=== PATIENT | male | born 2000 | race Caucasian/White ===

== ENCOUNTER 2020-04-30 10:11 | Emergency (ER) | payer SELFPAY ==
[2020-04-30] VITALS (23 sets, daily range): BP systolic 136–182; BP diastolic 81–103; PULSE 58–97; RESP 13–21; TEMP 36.7; O2SAT 97–100
--- NOTE | ~2020-04-30 | XR_ITS ---
XR chest 2V DATE: 04/30/2020 11:03 INDICATION: Shortness of breath TECHNIQUE: PA and lateral views COMPARISON: None FINDINGS: Normal heart size. No hilar or mediastinal enlargement. No pulmonary infiltrate or consolid ation, pleural effusion or pulmonary vascular congestion or pneumothorax. IMPRESSION: No active cardiopulmonary disease Reviewed, dictated and finalized at location A.
--- NOTE | 2020-04-30 10:17 | ECG_ITS ---
Measurements Intervals [place] Rate: 97 P: 71 UT: 150 QRS: 48 QRSD: 90 T: 47 QT: 313 QTc: 398 Interpretive Statements SINUS RHYTHM NORMAL ECG Electronically Signed On 04-30-2020 10:51:49 CDT by Santos Kelly D.O.
[2020-04-30 11:18] LABS: Basophils Percent Auto 0.4 % (0.2-1.2); Eosinophils Absolute Auto 0.1 K/mm3 (0-0.3); Eosinophils Percent Auto 2.2 % (0-4.4); Hemoglobin 16.1 g/dL (14.0-18.0); Immature Granulocyte Absolute 0.01 K/mm3 (0.00-0.031); Immature Granulocyte Percent A 0.2 % (0-0.5); Lymphocytes Absolute Auto 2.25 K/mm3 (0.9-3.2); Lymphocytes Percent Auto 41.7 % (18.3-44.2); Mean Corpuscular Hemoglobin 29.5 pg (26-34); Mean Corpuscular Volume 84.2 fl (80-100); Mean Platelet Volume 10.9 fl (7.4-10.4); Monocytes Absolute Auto 0.3 K/mm3 (0.1-0.6); Monocytes Percent Auto 5.9 % (2.6-8.5); Neutrophils Absolute Auto 2.7 K/mm3 (1.3-6.7); Neutrophils Percent Auto 49.6 % (45.5-73.1); Platelet Count Result 234 k/mm3 (150-375); Red Blood Count 5.46 M/mm3 (4.6-6.20); Red Cell Distribution Width 11.6 % (11.5-14.5); White Blood Count 5.4 K/mm3 (4.5-10.0)
[2020-04-30 11:28] LABS: Partial Thromboplastin Time 27.7 SECONDS (22.3-36.8); Prothrombin Time 12.6 Seconds (11.1-14.7)
--- NOTE | 2020-04-30 11:31 | ED.CHESTPAIN ---
HPI - Chest Pain General Chief Complaint: Chest Pain <Tuan Bang PA-C - Last Filed: 04/30/20 14:43> Stated Complaint: CP <Tuan Bang PA-C - Last Filed: 04/30/20 14:43> Time Seen by Provider: 04/30/20 10:48 <Tuan Bang PA-C - Last Filed: 04/30/20 14:43> Source: patient <JANAY Kimble Last Filed: 04/30/20 14:43> Mode of arrival: ambulatory <JANAY Kimble Last Filed: 04/30/20 14:43> Limitations: no limitations <JANAY Kimble Last Filed: 04/30/20 14:43> History of Present Illness HPI narrative: Patient presents with chief complaint of chest soreness that presents intermittently after he uses of e-cigarette or a puff bar. Patient states he has been trying to discontinue cigarette usage so he switch to puff bars which makes his chest sore and switched to e cigarettes because his grandma told him they were cheaper. He states he smoked a puffbar the other day and noticed his symptoms return. Patient states he does not have these symptoms when he smokes regular cigarettes. Patient denies sharp or left sided chest pain, SOB, nausea, vomiting diaphoresis, family history of AR, hypertension, or hYperlipidemia. He states he did not go to work today so he will need a work not. <Tuan Bang PA-C - Last Filed: 04/30/20 14:43> Related Data Allergies/Adverse Reactions: Allergies Allergy/AdvReac Type Severity Reaction Status Date / Time No Known Allergies Allergy Unverified 06/14/17 16:59 <JANAY Kimble Last Filed: 04/30/20 14:43> Review of Systems Review of Systems: Narrative: CONSTITUTIONAL: Denies fever, chills, or sweats. EYES: Denies visual changes, redness, or discharge. ENT: Denies rhinorrhea, congestion, sore throat, or otalgia. CARDIOVASCULAR: Reports chest discomfort. Denies palpitations, or edema. RESPIRATORY: Denies cough or dyspnea. GASTROINTESTINAL: Denies abdominal pain, nausea, vomiting, or diarrhea. GENITOURINARY: Denies dysuria or hematuria. SKIN: Denies rash or itching. MUSCULOSKELETAL: Denies back pain, myalgia, or joint pain NEUROLOGIC: Denies headache, numbness, dizziness, or weakness. PSYCHIATRIC: Denies anxiety or depression. <Tuan Bang PA-C - Last Filed: 04/30/20 14:43> [facility] Social History Social History: Social History Gender identity (if verbalized by the patient): Male <Tuan Bang PA-C - Last Filed: 04/30/20 14:43> Exam Narrative: Exam Narrative: GENERAL: Well-appearing, well-nourished. No apparent discomfort. Patient talking and laughing during exam. HEAD: Normocephalic, atraumatic. EYES: PERRLA and EOMI. ENT: Nares clear, no rhinorrhea or epistaxis. Mucous membranes moist. Oropharynx without tonsillar hypertrophy exudate or other lesions. Bilateral TMs pearly forde nonbulging NECK: Supple. No adenopathy or masses. No vertebral tenderness or loss of ROM. CHEST: Clear to auscultation. No respiratory distress. No wheezes rales or rhonchi. Symptoms not reproducible with palpation of chest wall. HEART: Regular rate and rhythm. Normal peripheral pulses. ABDOMEN: Soft, nontender, nondistended, normal active bowel sounds. No bruises noted. EXTREMITIES: No acute changes in ROM. No edema. SKIN: Warm, dry, no rash. NEURO: No focal deficits. Alert and oriented x3. PSYCH: Normal mood and affect. <Tuan Bang PA-C - Last Filed: 04/30/20 14:43> Course Vital Signs Vital signs: Vital Signs Temperature 98.0 F 04/30/20 10:26 Pulse Rate 97 04/30/20 10:26 Respiratory Rate 18 04/30/20 10:26 Blood Pressure 152/89 H 04/30/20 10:26 Pulse Oximetry 100 04/30/20 10:26 Temperature 98.0 F 04/30/20 10:26 Pulse Rate 63 04/30/20 14:56 Respiratory Rate 17 04/30/20 14:56 Blood Pressure 158/99 H 04/30/20 14:58 Pulse Oximetry 100 04/30/20 14:56 <Tuan Bang PA-C - Last Filed: 04/30/20 14:43> Vital Signs Temperature 98.0 F 04/30/20 10:26
[2020-04-30 11:32] LABS: Anion Gap 8 mmol/L (8-16); Blood Urea Nitrogen 15 mg/dL (9-20); Calcium 9.6 mg/dL (8.4-10.2); Carbon Dioxide 26 mmol/L (22-30); Chloride 104 mmol/L (98-107); Estimated CRCL calculation 112 ml/min; Estimated Glomerular Filt Rate > 60; Glucose 109 mg/dL (75-110); Potassium 3.9 mmol/L (3.4-5.0); Sodium 138 mmol/L (137-145)
[2020-04-30 11:43] LABS: Troponin I 0.018 ng/mL (0.000-0.034)
[2020-04-30 14:38] LABS: Troponin I 0.018 ng/mL (0.000-0.034)
== END 2020-04-30 14:55 | disposition home or self-care (01) ==
PROVIDERS: Emergency Provider General Practice
DX: R09.1 Pleurisy (principal)
CPT/HCPCS: 36415; 71046; 80048; 84484; 85025; 85610; 85730; 93005; 99284

== ENCOUNTER 2021-10-09 18:22 | Emergency (ER) | payer OTHER, SELFPAY ==
--- NOTE | ~2021-10-09 | XR_ITS ---
XR chest 2V DATE: 10/09/2021 18:50 INDICATION: Dry cough for 3 days. Patient vapes TECHNIQUE: PA and lateral views COMPARISON: 04/30/2022 view chest FINDINGS: Normal heart size. No hilar or mediastinal enlargement. The lungs are normally inflated and clear. No pleural effusion or pulmonary vascular congestion or pneumothorax. Included skeletal struc tures appear normal. IMPRESSION: Negative Reviewed, dictated and finalized at location A. IMPRESSION: Negative
[2021-10-09 18:30] VITALS: BP 183/105; PULSE 94; RESP 16; TEMP 37.3; O2SAT 100
--- NOTE | 2021-10-09 18:43 | ED.URI ---
HPI - URI/Sore Throat General Chief Complaint: Upper Respiratory Infection Stated Complaint: sob Time Seen by Provider: 10/09/21 18:37 Source: patient and RN notes reviewed Mode of arrival: ambulatory Limitations: no limitations History of Present Illness HPI Narrative: Patient presents today complaining of cough that was productive initially, but is currently nonproductive, intermittent shortness of breath which is exacerbated by his anxiety. He also reports that he did have some left-sided lateral chest pain that was worse with deep breath, but this has completely resolved prior to arrival. Denies fever or any additional symptoms. He has tried an albuterol inhaler which has been providing some temporary relief. He has tried no other [id number] medications prior to arrival. Patient does vape. MD elicited complaint: cough Related Data Home Medications Medication Instructions Recorded Confirmed sertraline 100 mg PO DAILY 10/09/21 10/09/21 Allergies Allergy/AdvReac Type Severity Reaction Status Date / Time Sulfa (Sulfonamide Allergy Other Verified 10/09/21 18:33 Antibiotics) Review of Systems Review of Systems: CONSTITUTIONAL: Denies body aches, fever, chills, or sweats. EYES: Denies visual changes, redness, or discharge. ENT: Denies rhinorrhea, congestion, sore throat, or otalgia. CARDIOVASCULAR: Denies chest pain, palpitations, or edema. RESPIRATORY: + Cough, shortness of breath GASTROINTESTINAL: Denies abdominal pain, nausea, vomiting, or diarrhea. GENITOURINARY: Denies dysuria or hematuria. SKIN: Denies rash, itching, or wounds. MUSCULOSKELETAL: Denies back pain, joint pain, or myalgia. NEUROLOGIC: Denies headache, numbness, tingling, or weakness. PSYCH: Denies depression or anxiety. [facility] Social History Social History (Updated 10/09/21 @ 18:46 by Veronica Hayes, [facility], ) Tobacco type: e-cigarettes/vaping Gender identity (if verbalized by the patient): Male Comments At time of signature, I have reviewed and agree with nursing past medical, surgical, social and family history unless otherwise noted. Please see nursing chart for further information. There is no relevant family history pertinent to the presenting complaint Exam Narrative: GENERAL: Well-appearing, well-nourished, and in no acute distress. HEAD: Normocephalic, atraumatic. EYES: EOMI. No redness or drainage. Conjunctivae normal. ENT: Mucous membranes pink and moist. Nares clear. No rhinorrhea. TMs normal bilaterally. Throat normal. Uvula midline. NECK: Normal AROM. Supple. No lymphadenopathy. CHEST: No respiratory distress. Clear to auscultation. Slight inspiratory wheezes in the bilateral upper lobes, otherwise clear. Patient is speaking in complete sentences in no apparent distress. HEART: Regular rate and rhythm. No murmur appreciated. Normal peripheral pulses. EXTREMITIES: Normal range of motion. No edema. SKIN: Warm, dry, no rash. Capillary refill normal. Normal skin turgor. NEURO: No focal deficits. Alert and oriented x3. Gait steady. PSYCH: Normal affect. No signs of depression or anxiety. Course Course Level of Care: Express Care Visit Vital Signs Vital signs: Vital Signs Temperature 99.2 F 10/09/21 18:30 Pulse Rate 94 10/09/21 18:30 Respiratory Rate 16 10/09/21 18:30 Blood Pressure 183/105 H 10/09/21 18:30 Pulse Oximetry 100 10/09/21 18:30 Temperature 99.2 F 10/09/21 18:30 Pulse Rate 94 10/09/21 18:30 Respiratory Rate 16 10/09/21 18:30 Blood Pressure 183/105 H 10/09/21 18:30 Pulse Oximetry 100 10/09/21 18:30 Reviewed. Pt has been instructed to follow up with his PCP regarding his elevated blood pressure today. States his doctor wants to start him on medication, but he declines as he believes his high blood pressure is due to his anxiety. MDM - URI/Sore Throat Differential Diagnosis Differential diagnosis: Likely upper respiratory infection, viral infection, bron
== END 2021-10-09 19:13 | disposition home or self-care (01) ==
PROVIDERS: Emergency Provider Nurse Practitioner; PCP Physician Assistant
DX: J40 Bronchitis, not specified as acute or chronic (principal); F17.290 Nicotine dependence, other tobacco product, uncomplicated
CPT/HCPCS: 71046; 99213; G0463

== ENCOUNTER 2022-01-18 09:29 | Emergency (ER) | payer OTHER, SELFPAY ==
[2022-01-18 09:38] VITALS: BP 146/93; PULSE 105; RESP 20; TEMP 36.2; O2SAT 100
--- NOTE | 2022-01-18 09:46 | ED.URI ---
HPI - URI/Sore Throat General Chief Complaint: Upper Respiratory Infection Stated Complaint: Congestion Time Seen by Provider: 01/18/22 09:40 Source: patient and RN notes reviewed Mode of arrival: ambulatory Limitations: no limitations History of Present Illness HPI Narrative: 21-year-old male presented for complaint of headache, sinus congestion and stuffy nose. He states it started 2 days ago and symptoms were worse at that time. Denies associated body aches, fatigue, fevers, chills, sore throat, cough. He is not vaccinated for COVID or flu. He denies sick contacts. He endorses getting acute bronchitis every month. He has been taking Vicks for symptoms and denies any pain at this time. MD elicited complaint: cough Related Data Home Medications Medication Instructions Recorded Confirmed sertraline 100 mg tablet 100 mg PO DAILY 10/09/21 10/09/21 Allergies Allergy/AdvReac Type Severity Reaction Status Date / Time Sulfa (Sulfonamide Allergy Other Verified 10/09/21 18:33 Antibiotics) Review of Systems Review of Systems: ROS negative except as in HPI [facility] Social History Social History Tobacco type: e-cigarettes/vaping Gender identity (if verbalized by the patient): Male Exam Narrative: GENERAL: well-appearing EYES: conjunctivae clear ENT: Mucous membranes moist. Nasal congestion. NECK: Supple. No lymphadenopathy CHEST: Clear to auscultation, breath sounds equal. HEART: Regular rate and rhythm. No murmur heard. SKIN: chronic Rash to left lateral ankle and between 2nd and 3rd fingers on left hand NEURO: Alert and oriented x3. Course Course Emergency Course: Patient is aware of diagnosis, understands and agrees to treatment plan. Anticipatory guidance given. Patient agrees to follow-up as directed and is aware of reasons to seek care at the emergency department. Portions of this record may have been created with voice recognition software Level of Care: Express Care Visit Vital Signs Vital signs: reviewed MDM - URI/Sore Throat MDM Narrative Medical decision making narrative: covid positive; advised quarantine guidelines, supportive measures and signs/symptoms to go to the ER. He states he has a at home, he is advised to avoid contact with the baby and contact the gas burner operator for any additional recommendations. Verbalized understanding. Pt is appropriate for outpt treatment and f/u. Differential Diagnosis Differential diagnosis: Likely upper respiratory infection, sinusitis and viral infection Discharge Plan Discharge Clinical Impression: COVID-19, Dermatitis Patient Disposition: Home, Self-Care Condition: Stable Instructions: Antibiotic Form, COVID-19 (Coronavirus Disease 2019) (ED) Additional Instructions: Your rapid COVID test was positive today. The following recommendations have been made by the CDC and local Health Departments, regarding COVID-19: -Quarnatine for 5 days -Avoid crowds -Those individuals with mild cases of COVID-19 can generally be discontinued from isolation 5 days AFTER the onset of symptoms AND the resolution of fever for 24hrs (without the use of fever-reducing medications)* -Wear a mask when you return to public for at least 5 days Rest, stay hydrated. Tylenol 1000mg eveyr 8 hours as needed for pain/fever Flonase/nasal spray, Zyrtec, cough syrup cold/flu medications for symptoms as needed Follow up with your primary care provider as needed in 1week Go to the ER for worsening symptoms or concerns Prescriptions: No Action sertraline 100 mg tablet 100 mg PO DAILY Follow-up/Referrals: [place],[facility] [place] [Primary Care Provider] - Stand Alone Forms: Work/School Release IP Time of Disposition: 10:08
== END 2022-01-18 10:25 | disposition home or self-care (01) ==
PROVIDERS: Emergency Provider Nurse Practitioner Family; PCP Physician Assistant
DX: U07.1 COVID-19 (principal); L30.9 Dermatitis, unspecified; F17.290 Nicotine dependence, other tobacco product, uncomplicated
CPT/HCPCS: 87426; 87804; 99213; C9803; G0463

== ENCOUNTER 2022-06-10 12:37 | Emergency (ER) | payer OTHER, SELFPAY ==
--- NOTE | 2022-06-10 12:52 | ED.URI ---
HPI - URI/Sore Throat General Chief Complaint: Upper Respiratory Infection Stated Complaint: Sore Throat,Cough Time Seen by Provider: 06/10/22 12:53 Source: patient Mode of arrival: ambulatory Limitations: no limitations History of Present Illness HPI Narrative: Mr. Addison is a 22-year-old male patient presenting to the clinic today with complaints of sore throat , body aches, cough, and nasal congestion x2 days. He reports and he also has overall fatigue. Reports that his daughter's been sick at home and thinks he may have caught this from her. MD elicited complaint: cough, sore throat and nasal congestion Related Data Home Medications Medication Instructions Recorded Confirmed sertraline 100 mg tablet 100 mg PO DAILY 10/09/21 01/18/22 Allergies Allergy/AdvReac Type Severity Reaction Status Date / Time Sulfa (Sulfonamide Allergy Other Verified 10/09/21 18:33 Antibiotics) Review of Systems Review of Systems: Pertinent positives per HPI. Patient denies any fever, chills, rash, headache, visual changes, dizziness, shortness of breath, chest pain, palpitations, nausea, vomiting, diarrhea, constipation, abdominal pain, or any urinary issues. [facility] Social History Social History Tobacco type: e-cigarettes/vaping Gender identity (if verbalized by the patient): Male Comments At the time of my signature, I reviewed and agree with the nursing past medical, surgical, social, and family history. There is no relevant family history pertinent to the patient complaint. Exam Narrative: General: Well-developed, well nourished, in no apparent distress Head: Normocephalic, atraumatic Eyes: Pupils equally round and reactive to light bilaterally, EOM intact, sclera and conjunctive clear, no discharge, lids normal Ears: TMs intact and clear, ear canals ceruminous, no drainage, grossly hearing normal. Nose: Nares patent, clear nasal discharge, mild inflammation, no sinus tenderness. Mouth: Oral pharynx without lesions or masses, good dentition, MMM. Oropharynx red Neck: Supple, trachea midline, no enlargement of anterior or posterior cervical nodes, no thyroid masses or goiter palpable. Cardio: Regular rate and rhythm, s1 and s2 normal, no murmur appreciated. Resp: Clear to auscultation bilaterally, no rhonchi, rales, wheezing or rubs Course Course Emergency Course: Portions of this record may have been created with voice recognition software. Level of Care: Express Care Visit Vital Signs Vital signs: Vital Signs Temperature 37.2 C 06/10/22 13:00 Pulse Rate 122 H 06/10/22 13:00 Respiratory Rate 20 06/10/22 13:00 Blood Pressure 156/98 H 06/10/22 13:00 Pulse Oximetry 100 06/10/22 13:00 Oxygen Delivery Room Air 06/10/22 13:00 Temperature 37.2 C 06/10/22 13:00 Pulse Rate 122 H 06/10/22 13:00 Respiratory Rate 20 06/10/22 13:00 Blood Pressure 156/98 H 06/10/22 13:00 Pulse Oximetry 100 06/10/22 13:00 Oxygen Delivery Room Air 06/10/22 13:00 Vital signs reviewed MDM - URI/Sore Throat MDM Narrative Medical decision making narrative: At the time of visit patient is resting comfortably on the exam table. influenza, strep, COVID swabs were obtained in the clinic today. Patient tested positive for influenza A. Strep and COVID testing were negative. Will send in prescription for Tamiflu and supportive measures were discussed with the patient he voiced understanding of discharge instructions and agrees to treatment plan. Differential Diagnosis Differential diagnosis: Likely upper respiratory infection, otitis media, sinusitis, viral infection, bronchitis, influenza, pharyngitis and other ( COVID) Lab Data Labs: Influenza A Screen Positive Reference Range: Negative Influenza B Screen Negative
[2022-06-10 13:00] VITALS: BP 156/98; PULSE 122; RESP 20; TEMP 37.2; O2SAT 100
== END 2022-06-10 13:20 | disposition home or self-care (01) ==
PROVIDERS: Emergency Provider Nurse Practitioner Family; PCP Physician Assistant
DX: J10.1 Influenza due to other identified influenza virus with other respiratory manifestations (principal); Z20.822 Contact with and (suspected) exposure to COVID-19; F17.290 Nicotine dependence, other tobacco product, uncomplicated; F41.9 Anxiety disorder, unspecified
CPT/HCPCS: 87081; 87426; 87804; 87880; 99213; C9803; G0463

== ENCOUNTER 2022-08-25 17:27 | Emergency (ER) | payer OTHER, SELFPAY ==
--- NOTE | ~2022-08-25 | XR_ITS ---
EXAMINATION: XR chest 2V DATE: 08/25/2022 17:55 INDICATION: Shortness of breath. TECHNIQUE: Frontal and lateral views of the chest were obtained on 3 radiographs. COMPARISON: Chest 2 views 10/09/2021 FINDINGS: The chest demonstrates clear lungs without pneumonia, pleural effusion, or pneumothorax. Th e heart size is normal. IMPRESSION: 1. No acute cardiopulmonary disease. Reviewed, dictated and finalized at location A. [facility]
--- NOTE | 2022-08-25 17:35 | ED.URI ---
HPI - URI/Sore Throat General Chief Complaint: Anxiety Stated Complaint: SOB Time Seen by Provider: 08/25/22 17:35 Source: patient Mode of arrival: ambulatory Limitations: no limitations History of Present Illness HPI Narrative: 22 yo M with hx of anxiety presents requesting a chest x-ray. States that he has been SOB for months which he thought was related to his anxiety but now he is concerned about his lungs and wants them checked. No changes to SOB. No cough. Denies CP. States a constantly feeling in throat like something is stuck. Has tried several anxiety meds with his PCP but none work. Currently not taking anything to treat it. States CBD helps but his PCP said he will not see him anymore if he uses it. Pt reports high HR and BP related to anxiety. Saw Dr. Ortiz at [facility] and was told was fine and all his symptoms are related to anxiety. States im sure this is my anxiety but just want my lungs looked at . All systems reviewed and negative except as noted above. Related Data Home Medications Medication Instructions Recorded Confirmed sertraline 100 mg tablet 100 mg PO DAILY 10/09/21 01/18/22 Allergies Allergy/AdvReac Type Severity Reaction Status Date / Time Sulfa (Sulfonamide Allergy Other Verified 10/09/21 18:33 Antibiotics) Review of Systems Review of Systems: CONSTITUTIONAL: Denies fever, chills, or sweats. EYES: Denies visual changes, redness, or discharge. ENT: Denies rhinorrhea, congestion, sore throat, or otalgia. CARDIOVASCULAR: Denies chest pain, palpitations, or edema. RESPIRATORY: Denies cough or dyspnea. GASTROINTESTINAL: Denies abdominal pain, nausea, vomiting, or diarrhea. GENITOURINARY: Denies dysuria or hematuria. SKIN: Denies rash or itching. MUSCULOSKELETAL: Denies back pain, joint pain, or myalgia. NEUROLOGIC: Denies headache, numbness, or weakness. PSYCHIATRIC: reports anxiety. Denies depression. All other systems reviewed are negative, except as documented in HPI. [facility] Social History Social History Tobacco type: e-cigarettes/vaping Gender identity (if verbalized by the patient): Male Comments At time of signature, agree with nursing past medical, surgical, social and family history. There is no relevant family history pertinent to the presenting complaint. Exam Narrative: GENERAL: This is a well-nourished, well-developed patient, in no apparent distress. HEAD: normocephalic, atraumatic. EYES: PERRL. Sclera clear/white. Vision is grossly intact. EARS: External ears normal NOSE: External nose normal NECK: Neck supple, non-tender without lymphadenopathy, masses or thyromegaly. CARDIOVASCULAR: Regular rate and rhythm without murmurs, gallops, or rubs. RESPIRATORY: Clear to auscultation. Breath sounds equal bilaterally. No wheezes, rales, or rhonchi. SKIN: warm, Dry, intact with no suspicious lesions or rash, good texture and turgor. NEURO: awake, alert, and oriented to person, place and time. There were no obvious focal neurologic abnormalities. EXTREMITIES: No joint tenderness, effusion, or edema noted. Course Course Level of Care: Express Care Visit Vital Signs Vital signs: Vital Signs Temperature 37.1 C 08/25/22 17:39 Pulse Rate 133 H 08/25/22 17:39 Respiratory Rate 18 08/25/22 17:39 Blood Pressure 181/111 H 08/25/22 17:39 Pulse Oximetry 100 08/25/22 17:39 Oxygen Delivery Room Air 08/25/22 17:39 Temperature 37.1 C 08/25/22 17:39 Pulse Rate 133 H 08/25/22 17:39 Respiratory Rate 18 08/25/22 17:39 Blood Pressure 181/111 H 08/25/22 17:39 Pulse Oximetry 100 08/25/22 17:39 Oxygen Delivery Room Air 08/25/22 17:39 HR 108 auscultated MDM - URI/Sore Throat MDM Narrative Medical decision making narrative: Patient is aware of diagnosis, understands and agrees to treatment plan. Anticipatory guidance given. Patient agrees to follow-up as directed and is madhuri
[2022-08-25 17:39] VITALS: BP 181/111; PULSE 133; RESP 18; TEMP 37.1; O2SAT 100
== END 2022-08-25 18:26 | disposition home or self-care (01) ==
PROVIDERS: Emergency Provider Nurse Practitioner Family; PCP Physician Assistant
DX: F41.9 Anxiety disorder, unspecified (principal); F17.290 Nicotine dependence, other tobacco product, uncomplicated; I10 Essential (primary) hypertension
CPT/HCPCS: 71046; 99213; G0463

== ENCOUNTER 2022-10-07 18:35 | Emergency (ER) | payer OTHER, SELFPAY ==
[2022-10-07 18:44] VITALS: BP 159/121; PULSE 145; RESP 16; TEMP 38.3; O2SAT 99
--- NOTE | 2022-10-07 19:14 | ED.URI ---
HPI - URI/Sore Throat General Chief Complaint: Upper Respiratory Infection Stated Complaint: Sinus Source: patient and RN notes reviewed Mode of arrival: ambulatory Limitations: no limitations History of Present Illness HPI Narrative: 22 y/o male presented for c/o headache, body aches, sinus pressure/congestion, cough, fever/chills. Onset 2 days. Denies known sick contacts. Denies shortness of breath, wheezing, nausea, vomiting, diarrhea or lethargy. He is not taking anything for symptoms. Endorses hx anxiety which raises HR and BP at doctor's offices/hospitals. Reports bp med compliance. MD elicited complaint: cough Related Data Home Medications Medication Instructions Recorded Confirmed metoprolol succinate 50 mg 50 mg PO DAILY 10/07/22 10/07/22 tablet,extended release 24 hr Allergies Allergy/AdvReac Type Severity Reaction Status Date / Time Sulfa (Sulfonamide Allergy Other Verified 10/07/22 18:47 Antibiotics) Review of Systems Review of Systems: CONSTITUTIONAL: Endorses malaise, chills, sweats, fever EYES: Denies visual changes, redness, or discharge ENT: Reports rhinorrhea, congestion, sinus pain, otalgia, sore throat CARDIOVASCULAR: Denies chest pain, palpitations, edema RESPIRATORY: Reports cough, post nasal drainage. Denies dyspnea GASTROINTESTINAL: Denies abdominal pain, nausea, vomiting, diarrhea SKIN: Denies rash or itching MUSCULOSKELETAL: Endorses myalgia PMFSH Past Medical History Medical History Hypertension Social History Social History Tobacco type: e-cigarettes/vaping Gender identity (if verbalized by the patient): Male Exam Narrative: GENERAL: midly Ill-appearing, nontoxic EYES: PERRLA, conjunctivae clear ENT: Mucous membranes moist. TMs pearly forde with dull light reflex bilaterally; no tragal tenderness. Oropharynx erythematous without lesions or exudate, no drooling, no hoarseness, no trismus, uvula midline. No tripod positioning, muffled voice, soft palate or pharyngeal wall bulging NECK: Supple. No lymphadenopathy CHEST: Clear to auscultation, breath sounds equal. No wheezing, rhonchi, rales, or stridor. No respiratory distress, speaks in full sentences. HEART: Tachy and Regular No murmur heard. SKIN: Warm, dry, no rash. NEURO: Alert and oriented x3. Course Course Emergency Course: Patient is aware of diagnosis, understands and agrees to treatment plan. Anticipatory guidance given. Patient agrees to follow-up as directed and is aware of reasons to seek care at the emergency department. Portions of this record may have been created with voice recognition software Level of Care: Express Care Visit Vital Signs Vital signs: Vital Signs Temperature 101.0 F H 10/07/22 18:44 Pulse Rate 145 H 10/07/22 18:44 Respiratory Rate 16 10/07/22 18:44 Blood Pressure 159/121 H 10/07/22 18:44 Pulse Oximetry 99 10/07/22 18:44 Oxygen Delivery Room Air 10/07/22 18:44 Temperature 101.0 F H 10/07/22 18:44 Pulse Rate 145 H 10/07/22 18:44 Respiratory Rate 16 10/07/22 18:44 Blood Pressure 159/121 H 10/07/22 18:44 Pulse Oximetry 99 10/07/22 18:44 Oxygen Delivery Room Air 10/07/22 18:44 reviewed MDM - URI/Sore Throat MDM Narrative Medical decision making narrative: Results of test reviewed with patient. Discussed heart rate and blood pressure. Advised supportive measures and signs/symptoms to go to the ER. Pt is appropriate for outpt treatment and f/u. Differential Diagnosis Differential diagnosis: Likely upper respiratory infection, otitis media, sinusitis, viral infection, bronchitis, influenza and pharyngitis Lab Data Labs: Influenza A Screen Negative Reference Range: Negative Influenza B Screen Negative
== END 2022-10-07 19:31 | disposition home or self-care (01) ==
PROVIDERS: Emergency Provider Nurse Practitioner Family; PCP Physician Assistant
DX: B34.9 Viral infection, unspecified (principal); Z20.822 Contact with and (suspected) exposure to COVID-19; F17.290 Nicotine dependence, other tobacco product, uncomplicated; I10 Essential (primary) hypertension
CPT/HCPCS: 87081; 87426; 87804; 87880; 99213; C9803; G0463

== ENCOUNTER 2023-01-09 09:00 | Emergency (ER) | payer OTHER, SELFPAY ==
--- NOTE | 2023-01-09 09:06 | ED.GENADULT ---
HPI - General Adult General Chief complaint: Eye Problems Stated complaint: pink eye Time Seen by Provider: 01/09/23 09:07 Source: patient, RN notes reviewed and old records reviewed Mode of arrival: ambulatory Limitations: no limitations History of Present Illness HPI narrative: 22-year-old male presents to the [facility] with concerns for pinkeye to the right eye. Denies any change in vision. States that he woke up with his eyes or red, right 1 did clear up, increase of drainage from the eye. Patient states that his daughter had pinkeye 5 days ago. Has a history of hypertension, reports he has not taken medications in 2 days, but took a dose today Related Data Home Medications Medication Instructions Recorded Confirmed metoprolol succinate 50 mg 50 mg PO DAILY 10/07/22 01/09/23 tablet,extended release 24 hr aripiprazole 5 mg tablet 5 mg PO DAILY 01/09/23 01/09/23 propranolol 60 mg capsule,24 60 mg PO DAILY 01/09/23 01/09/23 hr,extended release Allergies Allergy/AdvReac Type Severity Reaction Status Date / Time Sulfa (Sulfonamide Allergy Other Verified 01/09/23 09:06 Antibiotics) Review of Systems Review of Systems: All systems reviewed & are unremarkable except as noted in HPI and below Constitutional: Constitutional: Reports no additional constitutional complaints Eyes: Eyes: Reports as per HPI, Reports irritation and Reports itchy eyes ENT: Reports system reviewed and no additional complaints, except as documented Cardiovascular: Cardiovascular: Reports no additional cardiovascular complaints, Denies chest pain and Denies dyspnea Respiratory: Respiratory: Reports no additional respiratory complaints, Denies chest congestion, Denies cough and Denies dyspnea Gastrointestinal: Gastrointestinal: Reports no additional gastrointestinal complaints, Denies abdominal pain, Denies nausea and Denies vomiting Musculoskeletal: Musculoskeletal: Reports no additional musculoskeletal complaints Integumentary/Breasts: Skin/Breast: Reports system reviewed and no additional complaints, except as docu Neurologic: Reports system reviewed and no additional complaints, except as documented Psychiatric: Psychiatric: Reports no additional psychiatric complaints Allergic/Immunologic: Allergic/Immunologic: Reports no additional allergic/immunologic complaints PMFSH Past Medical History Medical History Hypertension Social History Social History Tobacco type: e-cigarettes/vaping Gender identity (if verbalized by the patient): Male Comments At the time of my signature, I reviewed and agree with the nursing past medical, surgical, social, and family history. There is no relevant family history pertinent to the patient complaint. Exam Const: General: cooperative, healthy appearing, comfortable, no acute distress, well developed, alert and well nourished Nutritional Appearance: well nourished and obese Orientation/consciousness: patient oriented x3 Limitations: no limitations HENMT: Head: normal to inspection Ears: hearing grossly normal bilaterally and external ears normal Face/Nose/Sinus: Normal external nose present, Normal nares present, Normal nasal mucous membranes and turbinates present and normal facial exam Face and sinus: normal facial exam Mouth: Yes Normal oral and palatal mucosa present, Yes lip normal and Yes moist mucous membranes Throat: posterior oropharynx normal and uvula midline Eyes: General: appearance normal, both eyes and all related structures Visual Chapman: normal visual chapman by confrontation Alignment and Position: alignment normal Periorbital: periorbital findings normal Eyelids: eyelids normal Conjunctivae: conjunctival abnormality right conjunctival injection localized (Lower lid, right) and discharge (Clear) Sclera: sclerae normal Cornea: corneas normal Pupils: Equ
[2023-01-09 09:07] VITALS: BP 157/103; PULSE 107; RESP 16; TEMP 36.6; O2SAT 99
== END 2023-01-09 09:22 | disposition home or self-care (01) ==
PROVIDERS: Emergency Provider Nurse Practitioner; PCP Physician Assistant
DX: H10.9 Unspecified conjunctivitis (principal); I10 Essential (primary) hypertension; F17.290 Nicotine dependence, other tobacco product, uncomplicated
CPT/HCPCS: 99213; G0463

== ENCOUNTER 2024-05-20 12:22 | Emergency (ER) | payer OTHER, SELFPAY ==
[2024-05-20 12:35] VITALS: BP 162/107; PULSE 111; RESP 20; TEMP 39.4; O2SAT 100
[2024-05-20 12:59] VITALS: TEMP 39.4
[2024-05-20] MEDS: IBUPROFEN 600 MG TABLET PO (12:59)
--- NOTE | 2024-05-20 13:16 | ED_ITS ---
HPI - URI/Sore Throat General Chief Complaint: Upper Respiratory Infection Stated Complaint: Fever/Sore Throat Time Seen by Provider: 05/20/24 13:16 Source: patient, RN notes reviewed and old records reviewed Mode of arrival: ambulatory Limitations: no limitations History of Present Illness HPI Narrative: Patient presents febrile. He reports that he has 2 day history of sore throat, fever, body aches, headache. He also presents hypertensive. Reports that he has not been taking any of his antihypertensive medication for several days. Denies any chest pain or shortness of breath. Denies any dizziness. Reports that he has not been taking any medication for his acute symptoms. Says his employer tested him for COVID prior to sending him home today. Related Data Home Medications Medication Instructions Recorded Confirmed metoprolol succinate 50 mg 50 mg PO DAILY 10/07/22 05/20/24 tablet,extended release 24 hr aripiprazole 5 mg tablet 5 mg PO DAILY 01/09/23 05/20/24 propranolol 60 mg capsule,24 60 mg PO DAILY 01/09/23 05/20/24 hr,extended release Allergies Allergy/AdvReac Type Severity Reaction Status Date / Time Sulfa (Sulfonamide Allergy Other Verified 05/20/24 12:25 Antibiotics) Review of Systems Review of Systems: All systems reviewed & are unremarkable except as noted in HPI and below Constitutional: Constitutional: Reports no additional constitutional complaints, Reports fever(s) and Reports headache(s) ENT: Reports system reviewed and no additional complaints, except as documented and Reports sore throat Cardiovascular: Cardiovascular: Reports no additional cardiovascular complaints Respiratory: Respiratory: Reports no additional respiratory complaints Gastrointestinal: Gastrointestinal: Reports no additional gastrointestinal complaints [facility] Past Medical History Medical History Hypertension Social History Social History Tobacco type: e-cigarettes/vaping Gender identity (if verbalized by the patient): Male Comments At the time of my signature, I reviewed and agree with the nursing past medical, surgical, social, and family history. There is no relevant family history pertinent to the patient complaint. Exam Const: General: cooperative, no acute distress, alert and awake Orientation/consciousness: oriented to person, oriented to place and oriented to time HENMT: Head: normal to inspection Ears: TM's normal bilaterally Mouth: Yes moist mucous membranes Throat: uvula midline, abnormal tonsil bilateral exudates and hypertrophy 1+ and posterior oropharynx abnormal erythema Resp: Effort & Inspection: normal respiratory effort and able to speak in complete sentences Auscultation: clear to auscultation bilaterally, no crackles, no rales, no rhonchi and no wheezes Cardio: Palpation: normal PMI Rate: regular rate Rhythm: regular rhythm Heart sounds: S1 normal heart sound present and S2 normal heart sound present Neuro: General: oriented to person, oriented to place and oriented to time Cranial nerves: Yes CN's II-XII intact bilaterally Psych: Appearance: grossly normal Thought process: Normal thought process present Insight: Good insight present (Psych) Judgement: Good judgement present (Psych) Course Course Level of Care: Express Care Visit Vital Signs Vital signs: Vital Signs Temperature 103 F H 05/20/24 12:35 Pulse Rate 11 L 05/20/24 12:35 Respiratory Rate 20 05/20/24 12:35 Blood Pressure 162/107 H 05/20/24 12:35 Pulse Oximetry 100 05/20/24 12:35 Oxygen Delivery Room Air 05/20/24 12:35 Temperature 103 F H 05/20/24 12:59 Pulse Rate 11 L 05/20/24 12:35 Respiratory Rate 20 05/20/24 12:35 Blood Pressure 162/107 H 05/20/24 12:35 Pulse Oximetry 100 05/20/24 12:35 Oxygen Delivery Room Air 05/20/24 12:35 Reviewed MDM - URI/Sore Throat MDM Narrative Medical decision making narrative: History and exam consistent with strep pharyngitis. Positive strep today. Treat with penicillin. Elevated blood pressure discussed with patient who admits he has not been taking his antihypertensive medication. Advised patient to confirm what medications he should be taking, there are two beta blockers on record. Discharge instructions reviewed with patient, as well as provided in writing p er nursing staff. The instructions also include specific and strict return/GO TO THE ER as well as f/u information. All questions have been answered, and the patient deny any further questions with discharge and discharge plan. Some parts of this dictation were generated by voice recognition software and may contain typographical and/or grammatical inaccuracies. Lab Data Attestation: I reviewed the patient's lab results. Labs: Lab Results 05/20/24 Range/Units 12:35 POC Grp A Strep Screen Negative (Negative) Discharge Plan Discharge Clinical Impression: Strep pharyngitis Hypertension Qualifiers: Hypertension type: unspecified Qualified Code(s): I10 - Essential (primary) hypertension Patient Disposition: Home, Self-Care Condition: Stable Instructions: Antibiotic Form, Strep Throat (ED) Additional Instructions: Take all medications as prescribed. Follow-up with primary care provider. Emergency department for new or worse symptoms. Discard toothpaste and toothbrush after 48 hours on treatment Prescriptions: New penicillin V potassium 500 mg tablet 500 mg PO Q12H 10 Days Qty: 20 0RF No Action metoprolol succinate 50 mg tablet extended release 24 hr 50 mg PO DAILY propranolol 60 mg capsule,extended release 24 hr 60 mg PO DAILY aripiprazole 5 mg tablet 5 mg PO DAILY Follow-up/Referrals: [place],PORSHA [place] [Primary Care Provider] - 2 Weeks Stand Alone Forms: Work/School Release IP Time of Disposition: 13:24
[2024-05-20 13:30] VITALS: BP 139/97; TEMP 38.6
[2024-05-21 08:18] LABS: EDSTREPNEGPOS1 POSITIVE (Negative)
== END 2024-05-20 13:30 | disposition home or self-care (01) ==
PROVIDERS: Emergency Provider Nurse Practitioner Family; PCP Physician Assistant
DX: J02.0 Streptococcal pharyngitis (principal); I10 Essential (primary) hypertension; F17.290 Nicotine dependence, other tobacco product, uncomplicated
CPT/HCPCS: 87880; 99213; A9270; G0463